=== PATIENT | female | born 1985 | race Caucasian/White ===

== ENCOUNTER 2019-03-19 17:20 | Emergency (ER) | payer MEDICAID ==
[~2019-03-19] VITALS: Ht 157.5 cm; Wt 83.6 kg
[~2019-03-19 17:20] MED LIST: ALPR-624 PO; CITA20TA28 PO; CLIN150C8 PO; No home meds; ONDA4TAB6 PO; ONDA8TAB9 PO; PROM25SU46 RC
[2019-03-19 17:58] VITALS: BP 142/79
[2019-03-19] MEDS ORDERED: LIDOcaine 1% w/epiNEPHrine 1:200,000 30ml vial IM ONE (20:25)
[2019-03-19] MEDS ORDERED: SULF1TAB49 PO (20:33)
--- NOTE | 2019-03-19 21:07 | NUR ---
CONNOR Olivarez at bedside for procedure.
== END 2019-03-19 21:56 | disposition home or self-care (01) ==
LOC: ER 17:20
DX: L02.612 Cutaneous abscess of left foot (principal); Z88.1 Allergy status to other antibiotic agents; Z88.8 Allergy status to other drugs, medicaments and biological substances; Z79.899 Other long term (current) drug therapy
CPT/HCPCS: 10060; 99283; J3490

== ENCOUNTER 2019-05-23 07:50 | Emergency (ER) | payer MEDICAID ==
[~2019-05-23] VITALS: Ht 157.5 cm; Wt 86.4 kg
[2019-05-23] MEDS ORDERED: normal saline 1000ML IV soln IVB ONE (08:15)
[2019-05-23] MEDS ORDERED: ondansetron/PF 4mg/2ml inj IV ONE (08:15)
[2019-05-23] MEDS ORDERED: pantoprazole 40mg Tablet.DR PO ONE (08:15)
[2019-05-23] MEDS ORDERED: mag hydrox/Alum hydrox/simeth 30ml oral suspension PO ONE (08:15)
[2019-05-23 09:01] LABS: BASOPHILS % (AUTO) 0.5 % (0-1); EOSINOPHILS # (AUTO) 0.1 X10'3 (0-0.9); EOSINOPHILS % (AUTO) 0.7 % (0-6); HEMATOCRIT 46.9 % (35.0-45.0); HEMOGLOBIN 15.8 g/dl (12.0-16.0); LYMPHOCYTES # (AUTO) 1.6 X10'3 (1.1-4.8); LYMPHOCYTES % (AUTO) 16.6 % (21-51); MEAN CORPUSCULAR HEMOGLOBIN 29.6 PG (27.0-31.0); MEAN CORPUSCULAR HGB CONC 33.7 g/dL (33.0-36.5); MEAN PLATELET VOLUME 7.2 FL (7.4-10.4); MONOCYTES # (AUTO) 0.4 X10'3 (0-0.9); MONOCYTES % (AUTO) 4.4 % (2-12); NEUTROPHILS # (AUTO) 7.5 X10'3 (1.8-7.7); NEUTROPHILS % (AUTO) 77.8 % (42-75); PLATELET COUNT 346 X10'3 (140-440); RED BLOOD COUNT 5.33 X10'6 (4.20-5.60); RED CELL DISTRIBUTION WIDTH 14.3 % (11.5-14.5); WHITE BLOOD COUNT 9.7 X10'3 (4.5-11.0)
[2019-05-23 09:18] LABS: ALANINE AMINOTRANSFERASE 35 U/L (12-78); ALBUMIN 4.2 G/DL (3.4-5.0); ALBUMIN/GLOBULIN RATIO 1.1 (1.1-1.5); ALKALINE PHOSPHATASE 71 IU/L (46-116); ANION GAP 11 (8-16); ASPARTATE AMINO TRANSFERASE 12 U/L (10-37); BILIRUBIN,TOTAL 0.2 MG/DL (0.1-1.0); BLOOD UREA NITROGEN 11 MG/DL (7-18); BUN/CREATININE RATIO 12.8 (6.6-38.0); CALCIUM 9.8 MG/DL (8.5-10.1); CHLORIDE 107 MMOL/L (99-107); CREATININE 0.86 MG/DL (0.40-0.90); GLUCOSE 123 MG/DL (70-104); SODIUM 142 MMOL/L (135-145); TOTAL CARBON DIOXIDE 23.8 MMOL/L (24-32); TOTAL PROTEIN 7.9 G/DL (6.4-8.2); eGFR 75 ML/MIN
[2019-05-23 09:31] LABS: URINE HCG NEGATIVE (NEG)
[2019-05-23 09:35] LABS: CLARITY,URINE SLIGHTLY CLOUDY (Clear); COLOR,URINE YELLOW (Yellow); GLUCOSE, URINE NEGATIVE (Neg); KETONES,URINE NEGATIVE (Neg); LEUKOCYTE ESTERASE ,URINE NEGATIVE (Neg); NITRITES, URINE NEGATIVE (Neg); OCCULT BLOOD,URINE NEGATIVE (Neg); PH,URINE 5.5 (4.8-8.0); PROTEIN,URINE NEGATIVE (Neg); UROBILINOGEN,URINE 0.2 E.U/dL (0.2-1.0)
[2019-05-23] MEDS ORDERED: proCHLORperazine 10 MG/2 ml inj IV ONE (09:35)
[2019-05-23] MEDS ORDERED: ONDA4TAB6 PO (09:43)
[2019-05-23 09:45] LABS: UA COLLECTION TYPE CLN CATCH MIDSTREAM
[2019-05-23 09:50] LABS: BACTERIA,URINE FEW /HPF (Neg); SQUAMOUS EPITHELIAL CELL,UR MANY /LPF (FEW)
[2019-05-23 09:51] LABS: RBC,URINE 0-2 /HPF (0-2); WBC,URINE 0-4 /HPF (0-4)
[2019-05-23 10:17] VITALS: BP 112/64
== END 2019-05-23 10:19 | disposition home or self-care (01) ==
LOC: ER 07:51
DX: R11.2 Nausea with vomiting, unspecified (principal); R19.7 Diarrhea, unspecified; F41.9 Anxiety disorder, unspecified; F32.9 Major depressive disorder, single episode, unspecified; Z87.442 Personal history of urinary calculi; Z88.1 Allergy status to other antibiotic agents; Z79.899 Other long term (current) drug therapy
CPT/HCPCS: 36415; 80053; 80178; 81001; 81025; 85025; 85610; 96361; 96374; 96375; 99283; J0780; J2405; J7030

== ENCOUNTER 2019-10-08 07:39 | Emergency (ER) | payer MEDICAID ==
[~2019-10-08] VITALS: Ht 165.1 cm; Wt 77.0 kg
[2019-10-08 07:45] VITALS: BP 125/70
[2019-10-08] MEDS ORDERED: ondansetron/PF 4mg/2ml inj IV ONE (08:15)
[2019-10-08] MEDS ORDERED: normal saline 1000ML IV soln IV ONE (08:15)
--- NOTE | 2019-10-08 08:45 | NUR ---
PATIENT REFUSED TO HAVE FLU SWAB OBTAINED.
[2019-10-08 08:55] LABS: BASOPHILS % (AUTO) 0.4 % (0-1); EOSINOPHILS # (AUTO) 0.1 X10'3 (0-0.9); EOSINOPHILS % (AUTO) 0.5 % (0-6); HEMATOCRIT 45.8 % (35.0-45.0); HEMOGLOBIN 15.7 g/dl (12.0-16.0); LYMPHOCYTES # (AUTO) 1.8 X10'3 (1.1-4.8); MEAN CORPUSCULAR HEMOGLOBIN 30.5 PG (27.0-31.0); MEAN CORPUSCULAR HGB CONC 34.4 g/dL (33.0-36.5); MEAN CORPUSCULAR VOLUME 88.7 FL (78-98); MEAN PLATELET VOLUME 7.8 FL (7.4-10.4); MONOCYTES # (AUTO) 0.5 X10'3 (0-0.9); MONOCYTES % (AUTO) 3.9 % (2-12); NEUTROPHILS # (AUTO) 9.7 X10'3 (1.8-7.7); NEUTROPHILS % (AUTO) 80.2 % (42-75); PLATELET COUNT 322 X10'3 (140-440); RED BLOOD COUNT 5.16 X10'6 (4.20-5.60); RED CELL DISTRIBUTION WIDTH 14.4 % (11.5-14.5); WHITE BLOOD COUNT 12.1 X10'3 (4.5-11.0)
[2019-10-08 09:14] LABS: ALANINE AMINOTRANSFERASE 32 U/L (12-78); ALBUMIN 4.3 G/DL (3.4-5.0); ALBUMIN/GLOBULIN RATIO 1.3 (1.1-1.5); ALKALINE PHOSPHATASE 63 IU/L (46-116); ANION GAP 10 (8-16); ASPARTATE AMINO TRANSFERASE 17 U/L (10-37); BILIRUBIN,TOTAL 0.4 MG/DL (0.1-1.0); BLOOD UREA NITROGEN 14 MG/DL (7-18); BUN/CREATININE RATIO 16.1 (6.6-38.0); CALCIUM 9.2 MG/DL (8.5-10.1); CHLORIDE 107 MMOL/L (99-107); CREATININE 0.87 MG/DL (0.40-0.90); GLUCOSE 125 MG/DL (70-104); LIPASE 155 U/L (73-393); POTASSIUM 3.6 MMOL/L (3.5-5.1); SODIUM 140 MMOL/L (135-145); TOTAL CARBON DIOXIDE 23.3 MMOL/L (24-32); TOTAL PROTEIN 7.6 G/DL (6.4-8.2); eGFR 74 ML/MIN
[2019-10-08] MEDS ORDERED: proCHLORperazine 10 MG/2 ml inj IV ONE (09:25)
[2019-10-08 10:03] LABS: COLOR,URINE YELLOW (Yellow); GLUCOSE, URINE NEGATIVE (Neg); KETONES,URINE NEGATIVE (Neg); LEUKOCYTE ESTERASE ,URINE NEGATIVE (Neg); NITRITES, URINE NEGATIVE (Neg); OCCULT BLOOD,URINE LARGE (Neg); PH,URINE 7.5 (4.8-8.0); PROTEIN,URINE NEGATIVE (Neg); UROBILINOGEN,URINE 0.2 E.U/dL (0.2-1.0)
[2019-10-08 10:15] LABS: URINE HCG NEGATIVE (NEG)
[2019-10-08 10:18] LABS: BACTERIA,URINE 1+ /HPF (Neg); CLARITY,URINE SLIGHTLY CLOUDY (Clear); MUCUS STRANDS MANY /LPF (Neg); RBC,URINE 0-2 /HPF (0-2); SQUAMOUS EPITHELIAL CELL,UR MANY /LPF (FEW); UA COLLECTION TYPE CLN CATCH MIDSTREAM; WBC,URINE 0-4 /HPF (0-4)
[2019-10-08] MEDS ORDERED: PROC25SU31 RC (10:28)
[2019-10-08] MEDS ORDERED: ONDA4TAB6 PO (10:28)
== END 2019-10-08 10:48 | disposition home or self-care (01) ==
LOC: ER 07:41
DX: B34.9 Viral infection, unspecified (principal); R11.2 Nausea with vomiting, unspecified; R19.7 Diarrhea, unspecified; F41.9 Anxiety disorder, unspecified; F32.9 Major depressive disorder, single episode, unspecified; Z87.442 Personal history of urinary calculi; Z98.890 Other specified postprocedural states; Z88.1 Allergy status to other antibiotic agents; Z88.8 Allergy status to other drugs, medicaments and biological substances; Z79.899 Other long term (current) drug therapy
CPT/HCPCS: 36415; 80053; 81001; 81025; 83690; 85025; 96361; 96374; 96375; 99283; J0780; J2405; J7030; 99284

== ENCOUNTER 2019-12-16 15:38 | Emergency (ER) | payer MEDICAID ==
[~2019-12-16] VITALS: Ht 157.5 cm; Wt 76.4 kg
[2019-12-16 15:42] VITALS: BP 115/79
[2019-12-16] MEDS ORDERED: ibuprofen tablet 400 MG TABLET PO ONE (16:50)
[2019-12-16] MEDS ORDERED: IBUP-1984 PO (16:50)
== END 2019-12-16 17:29 | disposition home or self-care (01) ==
LOC: ER 15:39
DX: S93.602A Unspecified sprain of left foot, initial encounter (principal); Z87.442 Personal history of urinary calculi; Z88.1 Allergy status to other antibiotic agents; Z88.8 Allergy status to other drugs, medicaments and biological substances; Z79.899 Other long term (current) drug therapy; W18.09XA Striking against other object with subsequent fall, initial encounter; Y93.89 Activity, other specified; Y92.89 Other specified places as the place of occurrence of the external cause; Y99.9 Unspecified external cause status
CPT/HCPCS: 73630; 99284

== ENCOUNTER 2020-08-10 08:28 | Emergency (ER) | payer MEDICAID ==
[~2020-08-10] VITALS: Ht 157.5 cm; Wt 68.2 kg
[~2020-08-10 08:28] MED LIST changes: -PROM25SU46 RC; +PROM25SU9 RC
[2020-08-10 09:44] LABS: BASOPHILS % (AUTO) 0.3 % (0-1); EOSINOPHILS # (AUTO) 0.1 X10'3 (0-0.9); EOSINOPHILS % (AUTO) 0.5 % (0-6); HEMATOCRIT 46.2 % (35.0-45.0); HEMOGLOBIN 15.5 g/dl (12.0-16.0); LYMPHOCYTES # (AUTO) 2.4 X10'3 (1.1-4.8); LYMPHOCYTES % (AUTO) 17.7 % (21-51); MEAN CORPUSCULAR HEMOGLOBIN 30.3 PG (27.0-31.0); MEAN CORPUSCULAR HGB CONC 33.6 g/dL (33.0-36.5); MEAN CORPUSCULAR VOLUME 90.3 FL (78-98); MEAN PLATELET VOLUME 7.8 FL (7.4-10.4); MONOCYTES # (AUTO) 0.8 X10'3 (0-0.9); NEUTROPHILS # (AUTO) 10.5 X10'3 (1.8-7.7); NEUTROPHILS % (AUTO) 75.5 % (42-75); PLATELET COUNT 335 X10'3 (140-440); RED BLOOD COUNT 5.12 X10'6 (4.20-5.60); RED CELL DISTRIBUTION WIDTH 14.6 % (11.5-14.5); WHITE BLOOD COUNT 13.8 X10'3 (4.5-11.0)
[2020-08-10] MEDS ORDERED: dicyclomine 10 MG capsule PO ONE (09:50)
[2020-08-10] MEDS ORDERED: normal saline 1000ML IV soln IVB ONE (09:50)
[2020-08-10] MEDS ORDERED: diphenhydrAMINE 50 mg/ml inj IV ONE (09:50)
[2020-08-10] MEDS ORDERED: proCHLORperazine 10 MG/2 ml inj IV ONE (09:50)
[2020-08-10 10:01] LABS: ALANINE AMINOTRANSFERASE 22 U/L (12-78); ALBUMIN 4.7 G/DL (3.4-5.0); ALBUMIN/GLOBULIN RATIO 1.3 (1.1-1.5); ALKALINE PHOSPHATASE 55 IU/L (46-116); ANION GAP 14 (8-16); ASPARTATE AMINO TRANSFERASE 13 U/L (10-37); BILIRUBIN,TOTAL 0.5 MG/DL (0.1-1.0); BLOOD UREA NITROGEN 16 MG/DL (7-18); BUN/CREATININE RATIO 18.8 (6.6-38.0); CALCIUM 9.3 MG/DL (8.5-10.1); CHLORIDE 106 MMOL/L (99-107); CREATININE 0.85 MG/DL (0.40-0.90); GLUCOSE 169 MG/DL (70-104); LIPASE 130 U/L (73-393); POTASSIUM 3.6 MMOL/L (3.5-5.1); SODIUM 140 MMOL/L (135-145); TOTAL CARBON DIOXIDE 20.1 MMOL/L (24-32); TOTAL PROTEIN 8.2 G/DL (6.4-8.2); eGFR 76 ML/MIN
[2020-08-10] MEDS ORDERED: ondansetron 4mg rapidly disintigrating tab PO ONE (10:25)
[2020-08-10 11:19] VITALS: BP 106/78
--- NOTE | 2020-08-10 11:23 | NUR ---
PT STATES SHE IS FEELING MUCH BETTER
[2020-08-10 11:54] LABS: CLARITY,URINE CLOUDY (Clear); COLOR,URINE YELLOW (Yellow); GLUCOSE, URINE NEGATIVE (Neg); KETONES,URINE 40 mg/dl (Neg); LEUKOCYTE ESTERASE ,URINE TRACE (Neg); NITRITES, URINE NEGATIVE (Neg); OCCULT BLOOD,URINE NEGATIVE (Neg); PROTEIN,URINE TRACE mg/dl (Neg); UROBILINOGEN,URINE 0.2 E.U/dL (0.2-1.0)
[2020-08-10 11:55] LABS: URINE HCG NEGATIVE (NEG)
[2020-08-10] MEDS ORDERED: DICY10CA88 PO (11:55)
[2020-08-10] MEDS ORDERED: ONDA4TAB6 PO (11:55)
[2020-08-10 11:58] LABS: UA COLLECTION TYPE CLN CATCH MIDSTREAM
[2020-08-10 12:02] LABS: SQUAMOUS EPITHELIAL CELL,UR MANY /LPF (FEW)
[2020-08-10 12:03] LABS: AMORPHOUS PHOSPHATES 2+; MUCUS STRANDS MODERATE /LPF (Neg); RENAL CELLS, URINE FEW /HPF
[2020-08-10 12:09] LABS: BACTERIA,URINE 2+ /HPF (Neg); RBC,URINE 0-2 /HPF (0-2)
== END 2020-08-10 12:04 | disposition home or self-care (01) ==
LOC: ER 08:29
DX: R11.2 Nausea with vomiting, unspecified (principal); F41.9 Anxiety disorder, unspecified; R19.7 Diarrhea, unspecified; R10.13 Epigastric pain; N20.0 Calculus of kidney; F32.9 Major depressive disorder, single episode, unspecified; Z88.0 Allergy status to penicillin; Z88.1 Allergy status to other antibiotic agents; Z88.8 Allergy status to other drugs, medicaments and biological substances; Z79.899 Other long term (current) drug therapy
CPT/HCPCS: 36415; 80053; 81001; 81025; 83690; 85025; 96361; 96374; 96375; 99284; J0780; J1200; J7030; 99283

== ENCOUNTER 2021-04-07 06:05 | Emergency (ER) | payer MEDICAID ==
[~2021-04-07 06:05] MED LIST changes: +DICY10CA88 PO
== END 2021-04-07 07:20 | disposition left against medical advice (07) ==
LOC: ER 06:06
DX: R11.10 Vomiting, unspecified (principal); R19.7 Diarrhea, unspecified; Z53.21 Procedure and treatment not carried out due to patient leaving prior to being seen by health care provider

== ENCOUNTER 2022-09-08 20:23 | Emergency (ER) | payer MEDICAID ==
[~2022-09-08] VITALS: Ht 157.5 cm; Wt 80.0 kg
[2022-09-08 20:26] VITALS: BP 142/86
[2022-09-08 20:51] LABS: BASOPHILS # (AUTO) 0.1 X10'3 (0-0.2); BASOPHILS % (AUTO) 0.6 % (0-1); EOSINOPHILS # (AUTO) 0.1 X10'3 (0-0.9); EOSINOPHILS % (AUTO) 1.2 % (0-6); HEMATOCRIT 43.2 % (35.0-45.0); HEMOGLOBIN 14.8 g/dl (12.0-16.0); LYMPHOCYTES # (AUTO) 2.1 X10'3 (1.1-4.8); LYMPHOCYTES % (AUTO) 19.9 % (21-51); MEAN CORPUSCULAR HEMOGLOBIN 29.5 PG (27.0-31.0); MEAN CORPUSCULAR HGB CONC 34.2 g/dL (33.0-36.5); MEAN CORPUSCULAR VOLUME 86.2 FL (78-98); MEAN PLATELET VOLUME 7.2 FL (7.4-10.4); MONOCYTES # (AUTO) 0.9 X10'3 (0-0.9); MONOCYTES % (AUTO) 7.9 % (2-12); NEUTROPHILS # (AUTO) 7.6 X10'3 (1.8-7.7); NEUTROPHILS % (AUTO) 70.4 % (42-75); PLATELET COUNT 339 X10'3 (140-440); RED BLOOD COUNT 5.01 X10'6 (4.20-5.60); RED CELL DISTRIBUTION WIDTH 14.7 % (11.5-14.5); WHITE BLOOD COUNT 10.8 X10'3 (4.5-11.0)
[2022-09-08 21:03] LABS: ALANINE AMINOTRANSFERASE 28 U/L (12-78); ALBUMIN 4.2 G/DL (3.4-5.0); ALBUMIN/GLOBULIN RATIO 1.2 (1.1-1.5); ALKALINE PHOSPHATASE 76 IU/L (46-116); ANION GAP 15 (8-16); ASPARTATE AMINO TRANSFERASE 19 U/L (10-37); BILIRUBIN,TOTAL 0.3 MG/DL (0.1-1.0); BLOOD UREA NITROGEN 12 MG/DL (7-18); BUN/CREATININE RATIO 13.6 (6.6-38.0); CALCIUM 9.3 MG/DL (8.5-10.1); CHLORIDE 106 MMOL/L (99-107); CREATININE 0.88 MG/DL (0.40-0.90); GLUCOSE 97 MG/DL (70-104); POTASSIUM 3.7 MMOL/L (3.5-5.1); SODIUM 143 MMOL/L (135-145); TOTAL CARBON DIOXIDE 22.1 MMOL/L (24-32); TOTAL PROTEIN 7.6 G/DL (6.4-8.2); eGFR 72 ML/MIN
[2022-09-08 21:08] LABS: MAGNESIUM 2.1 MG/DL (1.5-2.4)
== END 2022-09-09 01:49 | disposition left against medical advice (07) ==
LOC: ER 20:24
DX: F45.8 Other somatoform disorders (principal); I10 Essential (primary) hypertension; K21.9 Gastro-esophageal reflux disease without esophagitis; F31.9 Bipolar disorder, unspecified; F12.10 Cannabis abuse, uncomplicated; Z87.442 Personal history of urinary calculi; Z88.0 Allergy status to penicillin; Z88.1 Allergy status to other antibiotic agents; Z88.6 Allergy status to analgesic agent; Z79.899 Other long term (current) drug therapy
CPT/HCPCS: 36415; 80053; 83735; 83880; 84484; 85025; 93005; 99284

== ENCOUNTER 2024-05-09 22:28 | Emergency (ER) | payer MEDICAID ==
[~2024-05-09] VITALS: Ht 157.5 cm; Wt 72.3 kg
[~2024-05-09 22:28] MED LIST changes: +CLIN-214 PO; -CLIN150C8 PO
[2024-05-10] MEDS: LIDOcaine 1% W/epiNEPHrine 1:100,000 20ml vial IJ ONE (02:54)
[2024-05-10] MEDS ORDERED: CEPH-585 PO (04:04)
[2024-05-10] MEDS ORDERED: HYDR-3965 PO (04:04)
[2024-05-10] MEDS: bacitracin 15gm ointment TP ONE (04:07)
[2024-05-10 04:08] VITALS: BP 126/68; PULSE 68; RESP 14; TEMP 98.4; O2SAT 98
[2024-05-10] MEDS: cephalexin 250mg capsule PO ONE (04:13)
== END 2024-05-10 04:13 | disposition home or self-care (01) ==
LOC: ER 22:29
DX: L60.0 Ingrowing nail (principal); I10 Essential (primary) hypertension; K21.9 Gastro-esophageal reflux disease without esophagitis; F41.9 Anxiety disorder, unspecified; F32.A Depression, unspecified; Z87.442 Personal history of urinary calculi; Z79.2 Long term (current) use of antibiotics; Z79.899 Other long term (current) drug therapy; Z88.1 Allergy status to other antibiotic agents; Z88.8 Allergy status to other drugs, medicaments and biological substances
CPT/HCPCS: 11750; 99285; J3490; 11765

== ENCOUNTER 2024-07-07 12:11 | Emergency (ER) | payer MEDICAID ==
[~2024-07-07] VITALS: Ht 157.5 cm; Wt 71.1 kg
[2024-07-07 12:56] LABS: HEMOGLOBIN 15.5 g/dl (12.0-16.0); RED BLOOD COUNT 5.12 X10'6 (4.20-5.60); RED CELL DISTRIBUTION WIDTH 14.8 % (11.5-14.5)
[2024-07-07 12:57] LABS: BASOPHILS % (AUTO) 0.2 % (0-1); EOSINOPHILS % (AUTO) 0.1 % (0-6); HEMATOCRIT 46.2 % (35.0-45.0); LYMPHOCYTES # (AUTO) 0.8 X10'3 (1.1-4.8); LYMPHOCYTES % (AUTO) 5.6 % (21-51); MEAN CORPUSCULAR HEMOGLOBIN 30.3 PG (27.0-31.0); MEAN CORPUSCULAR HGB CONC 33.6 g/dL (33.0-36.5); MEAN CORPUSCULAR VOLUME 90.3 FL (78-98); MEAN PLATELET VOLUME 7.2 FL (7.4-10.4); MONOCYTES # (AUTO) 0.5 X10'3 (0-0.9); MONOCYTES % (AUTO) 3.2 % (2-12); NEUTROPHILS % (AUTO) 90.9 % (42-75); PLATELET COUNT 358 X10'3 (140-440); WHITE BLOOD COUNT 14.3 X10'3 (4.5-11.0)
[2024-07-07 13:08] LABS: ALANINE AMINOTRANSFERASE 19 U/L (12-78); ALBUMIN 4.3 G/DL (3.4-5.0); ALBUMIN/GLOBULIN RATIO 1.1 (1.1-1.5); ALKALINE PHOSPHATASE 63 IU/L (46-116); ANION GAP 10 (8-16); ASPARTATE AMINO TRANSFERASE 12 U/L (10-37); BILIRUBIN,TOTAL 0.5 MG/DL (0.1-1.0); BLOOD UREA NITROGEN 14 MG/DL (7-18); BUN/CREATININE RATIO 14.6 (10.0-20.0); CALCIUM 9.2 MG/DL (8.5-10.1); CHLORIDE 106 MMOL/L (99-107); CREATININE 0.96 MG/DL (0.40-0.90); GLUCOSE 135 MG/DL (70-104); POTASSIUM 4.2 MMOL/L (3.5-5.1); SODIUM 140 MMOL/L (135-145); TOTAL CARBON DIOXIDE 24.1 MMOL/L (24-32); TOTAL PROTEIN 8.3 G/DL (6.4-8.2); eCRCL 62 ML/MIN; eGFR 64 ML/MIN
[2024-07-07 13:14] LABS: PRO BRAIN NATRIURETIC PEPTIDE 67 PG/ML (0-125)
[2024-07-07] MEDS: ondansetron 4mg rapidly disintigrating tab PO ONE (15:20)
[2024-07-07] MEDS: LORazepam 1 MG tablet PO ONE (15:20)
[2024-07-07] MEDS: normal saline 1000ml 1,000 ML IV ONE (16:30)
[2024-07-07] MEDS: LORazepam 2 mg/ml vial IV ONE (16:30)
[2024-07-07] MEDS: proMETHazine 25mg tablet PO ONE (17:00)
[2024-07-07 18:08] VITALS: BP 103/76; PULSE 83; RESP 16; TEMP 98.3; O2SAT 98
== END 2024-07-07 18:10 | disposition home or self-care (01) ==
LOC: ER 12:11
DX: F41.9 Anxiety disorder, unspecified (principal); F41.0 Panic disorder [episodic paroxysmal anxiety]; R11.2 Nausea with vomiting, unspecified; R19.7 Diarrhea, unspecified; Z88.0 Allergy status to penicillin; Z88.8 Allergy status to other drugs, medicaments and biological substances; Z88.1 Allergy status to other antibiotic agents; Z79.899 Other long term (current) drug therapy
CPT/HCPCS: 36415; 71045; 80053; 83880; 84484; 85025; 93005; 96361; 96374; 99285; J2060; J7030; Q0169

== ENCOUNTER 2024-09-27 09:44 | Outpatient (CLI) | payer MEDICAID | END 2024-09-27 23:59 | disposition home or self-care (01) | LOC: RAD 09:44 | PROVIDERS: ATTEND Family Medicine | DX: K76.0 Fatty (change of) liver, not elsewhere classified (principal); K82.4 Cholesterolosis of gallbladder; R14.0 Abdominal distension (gaseous) | CPT/HCPCS: 76700 ==

== ENCOUNTER 2025-08-31 02:32 | Emergency (ER) | payer MEDICAID ==
[~2025-08-31] VITALS: Ht 157.5 cm; Wt 72.7 kg
[~2025-08-31 02:32] MED LIST changes: +CITA-178 PO; -CITA20TA28 PO
[2025-08-31] MEDS ORDERED: normal saline 1000ml 1,000 ML IV ONE (03:00)
[2025-08-31] MEDS ORDERED: ondansetron/PF 4mg/2ml inj IV ONE (03:00)
[2025-08-31 03:09] LABS: MEAN PLATELET VOLUME 7.2 FL (7.4-10.4); RED CELL DISTRIBUTION WIDTH 14.1 % (11.5-14.5)
--- NOTE | 2025-08-31 03:17 | Physician Documentation ---
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 She reports that she has once again under lot of stress. She had attempted to treat it with the [id number] medications without success. Unable to keep anything down. No particular palliating or aggravating factors. Denies any other symptoms. She denies use of tobacco, alcohol or illicit substances. Medication Reconciliation Allergies: Coded Allergies: amoxicillin (Unverified Allergy, Intermediate, 08/31/25) ampicillin (Unverified Allergy, Intermediate, 08/31/25) fluoxetine HCl (Unverified Allergy, Intermediate, 08/31/25) metoclopramide (Unverified Allergy, Unknown, rash, 08/31/25) Scheduled Citalopram Hydrobromide* (Celexa*), 20 MG PO DAILY, (Reported) Clindamycin HCl (Clindamycin HCl CAPSULE), 1 CAP PO TID Dicyclomine Hcl* (Bentyl*), 2 CAP PO Q8H Ondansetron Hcl (Zofran), 1 TAB PO Q8H Ondansetron Hcl (Zofran), 1 TAB PO Q6H Ondansetron Hcl (Zofran), 1 TAB PO Q12H PRN Prochlorperazine Maleate (Compazine), 1 TAB PO Q6H Promethazine Hcl (Promethegan), 25 MG RC Q6H PRN N/V Scheduled PRN Alprazolam* (Xanax*), 1 TABLET PO BID PRN for anxiety Ondansetron (Zofran Odt), 4 MG PO TID PRN PRN for nausea/vomiting Ondansetron Hcl (Zofran), 1 TABLET PO Q6H PRN for nausea Miscellaneous Medications [No home meds], (Reported) Past Medical History Past Medical History: Hypertension, GERD, Kidney Stones, Anxiety, Depression Past Surgical History: other Other Past Family History: Noncontributory Smoking: Cigarettes Alcohol Use: None Drug Use: marijuana Lives with: Spouse, Family Lives In: Home Occupation: student Review of Systems ROS 10 point review of systems was performed and unless noted above in HPI is negative for acute process/complaint. Physical Exam Physical Exam Vital Signs: Temperature: 97.6, Source: Temporal, Heart Rate: 82, Respiratory Rate: 18, BP: 151/82, Pulse Oximetry: 96, Weight: 72.700 Physical Exam GENERAL: Awake, alert, oriented, GCS 15, no apparent distress, non-toxic appearing, answers questions, follows commands appropriately. Examined in bed 1. HEENT: Atraumatic, normocephalic, pupils equal, extraocular muscles intact, sclerae anicteric, mucus membranes moist, oropharynx is clear, no stridor. NECK: supple, full active range of motion, trachea midline, no thyromegaly, no lymphadenopathy, no JVD. CARDIOVASCULAR: regular rate/rhythm, no murmurs/gallops/rubs, Pulses are 2+ in all extremities and symmetric. Capillary refill less than 2 seconds. PULMONARY: Nonlabored, good air movement ,no respiratory distress, speaking in full sentences, clear to auscultation bilaterally, no wheezing, no ronchi, no rales, no accessory muscle use. GASTROINTESTINAL: Soft, diffusely tender without guarding or rebound, non- distended, normal active bowel sounds, no organomegaly, no pulsatile masses, no CVA tenderness. NEUROLOGIC: Lucid with normal mental status. Normal facial symmetry. Moves all extremities symmetrically and with purpose. No truncal ataxia. Speech is fluid without evidence of dysarthria or aphasia, no focal deficits appreciated. MUSCULOSKELETAL: There is full range of motion of all extremities. There is no joint pain or joint swelling or joint erythema. There is no muscle pain or tenderness or swelling. EXTREMITIES: warm, well-perfused, no cyanosis, no clubbing, no edema, no acute deformities. Skin: warm, dry, no rashes or lesions, no jaundice, no petechiae orpurpura. No ecchymosis. PSYCHIATRIC: Normal affect, normal insight, normal concentration. Focused exam: [] Progress Results/Orders Results/Orders Medications Received in ER Medications (Trade) Dose Ordered Sig/Lenora Route PRN Reason Start Time Stop Time Status Last Admin Dose Admin (Zofran 4mg/2ml vial) 8 mg ONCE ONCE IV 08/31/25 03:00 08/31/25 03:01 DC 08/31/25 03:45 8 MG Sodium Chloride 1,000 ml @ 1,000 mls/hr ONCE ONCE IV 08/31/25 03:00 08/31/25 03:59 DC 08/31/25 03:45 1,000 MLS/HR (morphine inj.) 4 mg ONCE ONCE IV 08/31/25 03:15 08/31/25 03:16 DC 08/31/25 03:46 4 MG (Compazine inj) 10 mg ONCE ONCE IV 08/31/25 04:15 08/31/25 04:19 DC 08/31/25 04:24 10 MG (Ativan inj) 0.5 mg ONCE ONCE IV 08/31/25 04:15 08/31/25 04:16 DC 08/31/25 04:24 0.5 MG Vital Signs 08/31/25 08/31/25 08/31/25 08/31/25 02:37 04:24 04:27 04:32 Temp 97.6 Pulse 82 73 Resp 18 19 19 19 B/P (MAP) 151/82 165/99 (121) Pulse Ox 96 100 08/31/25 08/31/25 05:45 05:53 Pulse 100 Resp 15 18 B/P (MAP) 126/80 (95) Pulse Ox 98 Laboratory Tests Test 08/31/25 02:59 08/31/25 05:30 White Blood Count 13.1 H Red Blood Count 4.91 Hemoglobin 14.7 Hematocrit 43.2 Mean Corpuscular Volume 88.0 Mean Corpuscular Hemoglobin 30.0 Mean Corpuscular Hemoglobin Concent 34.1 Red Cell Distribution Width 14.1 Platelet Count 404 Mean Platelet Volume 7.2 L Neutrophils (%) (Auto) 81.1 H Lymphocytes (%) (Auto) 14.6 L Monocytes (%) (Auto) 3.6 Eosinophils (%) (Auto) 0.2 Basophils (%) (Auto) 0.5 Neutrophils # (Auto) 10.6 H Lymphocytes # (Auto) 1.9 Monocytes # (Auto) 0.5 Eosinophils # (Auto) 0.0 Basophils # (Auto) 0.1 CBC Comment Sodium Level 143 Potassium Level 3.6 Chloride Level 110 H Carbon Dioxide Level 18.8 L Anion Gap 14 Blood Urea Nitrogen 16 Creatinine 0.78 Estimated GFR/1.73 m2 81 BUN/Creatinine Ratio 20.5 H Glucose Level 169 H Calcium Level 8.9 Total Bilirubin 0.4 Aspartate Amino Transf (AST/SGOT) 18 Alanine Aminotransferase (ALT/SGPT) 26 Alkaline Phosphatase 67 Troponin I High Sensitivity 4 Total Protein 7.9 Albumin 4.2 Globulin 3.7 Albumin/Globulin Ratio 1.1 Lipase 48 Human Chorionic Gonadotropin, Qual Negative Chemistry Comments Ethyl Alcohol Level < 10 Urine Specimen Description Cln catch midstream Urine Color Yellow Urine Clarity Clear Urine pH 6.0 Urine Specific [place] 1.025 Urine Protein Negative Urine Glucose (UA) Negative Urine Ketones 40 H Urine Occult Blood Negative Urine Nitrite Negative Urine Bilirubin Negative Urine Urobilinogen 0.2 Urine Leukocyte Esterase Negative Urine Culture Indicated Not ind Volume Urine Centrifuged 10 ml Urine Comment Urine Opiates Screen Positive Urine Methadone Screen Negative Urine Fentanyl Screen Negative Urine Barbiturates Screen Negative Urine Phencyclidine Screen Negative Urine Amphetamines Screen Negative Urine Benzodiazepines Screen Negative Urine Cocaine Screen Negative Urine Cannabinoids Screen Positive Drug Screen Comment Medical Decision Making Additional information obtaine: old records Findings Facility Status: ED Holds, [facility] process The plan was discussed with the patient, who demonstrates clear understanding of the plan and is in agreement with the plan unless otherwise noted in the chart. All questions have been answered, all concerns were addressed unless otherwise documented. I was available throughout their ED stay for frequent reassessment and questions. Differential Diagnoses (considered and possible or likely): [Differential diagnosis considered includes acute appendicitis, acute cholecystitis, pancreatitis, gastritis, PUD, diverticulitis, mesenteric ischemia, abdominal aortic aneurysm, bowel obstruction, enteritis, colitis, fecal impaction, volvulus, IBS, inflammatory bowel disease, specific food intolerance, peritonitis, perforated viscous, malignancy, UTI, abscess, and abdominal pain NOS. Pelvic source of pain was also considered including endometritis, dysmenorrhea, ovarian cyst, ovarian torsion, PID, TOA, cervicitis, vaginitis, or uterine fibroid. History, physical exam, and workup exclude many of the more serious causes listed above. ] ??Differential Diagnoses (considered and unlikely, not requiring evaluation currently): [See above] MDM Data Please see HPI for the following: Independent Historians and external Records Review. Historian: [Patient] Independent Historians: ?[Record review] Medication Management: [Reviewed medication list] Social History and determinants: [Reviewed] Please see the body of the note for the following: Any independent interpretations of ECG, imaging studies. All vitals signs/haemodynamics, ordered tests were independently reviewed and interpreted by myself. Nursing triage complaint and vitals reviewed, additional nursing notes were reviewed as available and I agree unless otherwise noted or documented in contradiction in the chart Vital Signs: Independently reviewed Labs: Independently interpreted Imaging: Independently interpreted Old Medical Records: Independently reviewed, see HPI for relevant summary and information Pulse Oximetry: [98%] interpreted as [normal on room air] by me [[employer]iconductor Lab Technician: [Regular Rate, Regular rhythm, no ectopy, NSR] reviewed and interpreted by me] Additionally notably showing: [Hemodynamics reviewed. The patient isn't febrile, not of hypotension or respiratory distress he has been off laboratory studies shows CBC with a leukocytosis 13, edematous chemistry shows the hydration. Elevated from has a past 69. Lipase is normal. Troponin is negative. Liver function normal. Ethanol is negative.] Tests considered but not ordered include: [Not applicable viral] Social Determinants of Health Impact: Patient was evaluated in [facility], [facility] [place] access to healthcare due to below par ratio of patient to medical providers. [] Comorbid Conditions Impacting Present Evaluation and Care/Treatment: [History of stress-induced abdominal pain] Management Discussions with other Healthcare Providers: [None] Treatment and Disposition Medication Management (Given or considered): [Nausea management, pain management]. See EMR for details Consideration for Hospitalization/Escalation/Deescalation of Care: Admission for observation has been considered, [however the patient is able to tolerate p.o., their symptoms are controlled, they are able to rely on oral medications, and their chief complaint/diagnosis can be managed on outpatient basis.] ?ED Course:?[Has been Date: Aug 31, 2025 Time: 05:07 the patient is markedly improved. ] ?Shared decision making:?[] Code status:?FULL Please see the full Electronic Medical Record for full details of nursing documentation, medications list, other records of complete past medical history and conditions, vital signs, laboratory studies, and any radiologic study interpretations by radiologists. Portions of this note were completed using [employer] dictation software and as a result there may exist minor errors in spelling. I have reviewed elements of past family and social history and agree as included in note. Differential Diagnosis See body of main note for differential diagnosis Addendum Sign-out note I received sign-out on this patient at shift change. Pending CT scan. If this is normal, the patient to be discharged home with symptomatic treatment. I personally interpreted the CT scan, and this shows no bowel obstruction or inflammatory process I reviewed the patient's workup today. There were no dangerous findings. As her CT is unremarkable, she will be discharged home with symptomatic treatment as per the previous provider's plan. Butch Mcwilliams MD Departure Time of Disposition: 06:39 Disposition: 01 HOME / SELF CARE / HOMELESS Impression: Primary Impression: Abdominal pain Additional Impressions: Nausea and vomiting Dehydration Condition: Improved Discharge Instructions: Abdominal Pain (Nonspecific) Referrals: NO PRIMARY CARE PROVIDER (PCP) Prescriptions Prochlorperazine Maleate (Compazine) 10 Mg Tablet 1 TAB PO Q6H for 7 Days, #28 TAB 0 Refills Prov: FABRICE REYNOLDS DO 08/31/25 Dicyclomine Hcl* (Bentyl*) 10 Mg Capsule 2 CAP PO Q8H for 5 Days, #15 CAP 0 Refills Prov: FABRCIE REYNOLDS DO 08/31/25 Promethazine Hcl (Promethegan) 25 Mg Supp.rect 25 MG RC Q6H PRN N/V, #10 SUPP 1 Refill Prov: FABRICE REYNOLDS DO 08/31/25 Education Educated: Patient Educated regarding: diagnosis, treatment, prognosis, need for follow up Signature Scribe Signature: No scribe Attestation: Date: Aug 31, 2025 Time: 03:15 This note accurately reflects clinical decisions, work performed by myself, DO GAIL Stone NICHOLAS M DO Aug 31, 2025 03:17 BUTCH MCWILLIAMS MD Aug 31, 2025 06:39
[2025-08-31 03:23] LABS: CREATININE 0.78 MG/DL (0.40-0.90); TOTAL CARBON DIOXIDE 18.8 MMOL/L (24-32); eCRCL 75 ML/MIN; eGFR 81 ML/MIN
[2025-08-31] MEDS: normal saline 1000ml 1,000 ML IV ONE (03:45)
[2025-08-31] MEDS: ondansetron/PF 4mg/2ml inj IV ONE (03:45)
[2025-08-31] MEDS: morphine 4 MG/ML inj SYRINge IV ONE (03:46)
[2025-08-31 04:40] LABS: ETHANOL < 10 MG/DL (<10)
[2025-08-31 04:41] LABS: HCG SERUM QL NEGATIVE
[2025-08-31] MEDS ORDERED: iohexol 300mg/ml 100ml inj. ONE (04:58)
[2025-08-31] MEDS ORDERED: PROC-8 PO (05:10)
[2025-08-31] MEDS ORDERED: PROM25SU9 RC (05:10)
[2025-08-31] MEDS ORDERED: DICY10CA88 PO (05:10)
[2025-08-31 05:46] LABS: LEUKOCYTE ESTERASE ,URINE NEGATIVE (Neg); NITRITES, URINE NEGATIVE (Neg); OCCULT BLOOD,URINE NEGATIVE (Neg)
[2025-08-31 05:52] LABS: UA COLLECTION TYPE CLN CATCH MIDSTREAM
[2025-08-31 05:53] LABS: URINE AMPHETAMINE SCREEN NEGATIVE (Neg); URINE BARBITUATE SCREEN NEGATIVE (Neg); URINE BENZODIAZEPINES SCREEN NEGATIVE (Neg); URINE CANNABINOID SCREEN POSITIVE (Neg); URINE COCAINE SCREEN NEGATIVE (Neg); URINE METHADONE SCREEN NEGATIVE (Neg); URINE OPIATE SCREEN POSITIVE (Neg); URINE PHENCYCLIDINE SCREEN NEGATIVE (Neg)
--- NOTE | 2025-08-31 06:13 | RADIOLOGY REPORT ---
Exam: CT CT ABDOMEN PELVIS W/ IV CONTRAST History: Diffuse abdominal pain, nausea vomiting Comparison Study: None TECHNIQUE: Multidetector CT of the abdomen and pelvis was performed from lung bases to pubic symphysis. Imaging was performed without IV contrast. Axial, coronal and sagittal multiplanar reformats were obtained from the axial data set by the technologist. Radiation optimization: All CT scans at this facility use at least one of these dose optimization techniques: automated exposure control mA and/or kV adjustment per patient size (includes targeted exams where dose is matched to clinical indication) or iterative reconstruction. Radiation Dose Information: CT Dose: CTDI volume is 19.1 mGy. Dose-length product is 1005 mGy*cm FINDINGS: Evaluation of solid organs is limited due to lack of intravenous contrast use. Imaged portions of the lung bases appear unremarkable. There is diffuse hepatic steatosis. 2 cm hypodensity in the right hepatic lobe. Gallbladder, spleen, pancreas and adrenal glands appear unremarkable. The kidneys enhance symmetrically without hydronephrosis. There are bilateral extrarenal pelves. There is moderate intracolonic stool. No suspicious osseous lesion. IMPRESSION: 1. No acute abdominal or pelvic finding. 2. Diffuse hepatic steatosis 3. Indeterminate 2 cm hypodensity in the right hepatic lobe. Nonemergent hepatic MRI protocol is recommended.
[2025-08-31 06:47] VITALS: BP 132/78; PULSE 78; RESP 16; TEMP 98.4; O2SAT 98
== END 2025-08-31 06:50 | disposition home or self-care (01) ==
LOC: ER 02:33
DX: R10.84 Generalized abdominal pain (principal); R11.2 Nausea with vomiting, unspecified; E86.0 Dehydration; F41.9 Anxiety disorder, unspecified; I10 Essential (primary) hypertension; F12.90 Cannabis use, unspecified, uncomplicated; K21.9 Gastro-esophageal reflux disease without esophagitis; F32.A Depression, unspecified; F17.210 Nicotine dependence, cigarettes, uncomplicated; Z87.442 Personal history of urinary calculi; Z88.8 Allergy status to other drugs, medicaments and biological substances; Z88.1 Allergy status to other antibiotic agents; Z79.899 Other long term (current) drug therapy
CPT/HCPCS: 36415; 74177; 80053; 80305; 80320; 81003; 83690; 84484; 84703; 85025; 96361; 96374; 96375; 99285; J0780; J2060; J2270; J2405; J7030; Q9967